=== PATIENT | male | born 1960 | race Caucasian/White ===

== ENCOUNTER 2025-05-10 21:40 | Outpatient (REF) | payer MEDICARE, MEDICAID, SELFPAY ==
--- OUTSIDE RECORDS SUMMARY | 2025-02-08 03:30 | XMS_ITS ---
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 Encounters Encounter Location Date Provider Diagnosis [facility] [address] [place] [address] 02/08/2025 Mehrdad Christina Thrombosis due to vascular prosthetic devices, implants and grafts, initial encounter T82.868A and End stage renal disease N18.6 Assessments Encounter Date Diagnosis (ICD Code) Assessment Notes Treatment Notes Treatment Clinical Notes Section Notes 02/08/2025 Thrombosis due to vascular prosthetic devices, implants and grafts, initial encounter (ICD-10 - T82.868A) 02/08/2025 End stage renal disease (ICD-10 - N18.6) Plan Of Treatment No Information Progress Notes * Vernon CHAPMAN JrDOB: [birth year] (64 yo M)Acc No.[id number]:02/08/2025 Patient: Grey SANTACURZVernon Jr Provider: Hector Vasquez MD :1960 A ge:64 Y S ex:Male Date:02/08/2025 Address:[address] [facility], [place], [place] Pcp:Omero Burton MD * * Sign off status: Completed Visit Status: P EN (Pending) true * Provider: Hector Vasquez MD Date: 0 02/08/2025 Generated for Dinesh cardoza/Felipe/eTransmitting on: 0 05/10/2025 09:50 PM EDT
--- OUTSIDE RECORDS SUMMARY | 2025-02-08 03:30 | XMS_ITS ---
Author Organization [facility] in [place] Address [address] [place] [address] Care Team Providers Care Fitness And Wellness Manager Name Role Phone Josephine MUÑOZ, Omero Primary Care Provider Unavaila ble Provider, [facility] Unavailable [phone] Encounters Encounter Location Date Provider Diagnosis [facility] [address] [place] [address] 02/08/2025 ASC Provider Plan Of Treatment No Information Progress Notes * Vernon CHAPMAN JrDOB: [birth year] (64 yo M)Acc No.[id number]:02/08/2025 UNLOCKED PROGRESS NOTE Patient: Grey SANTACRUZVernon Jr Provider: A UT Provider :1960 A ge:64 Y S ex:Male Date:02/08/2025 Address:[address] [facility] Pcp:Omero Burton MD Check In:07:29 AM EST * * Electronic signature of ASC Provider on 05/10/2025 at 09:49 PM EDT Sign off status: Pending Visit Status: A RR (Check-In) * Provider: A SC Provider Date: 02/08/2025 Generated for Printi ng/Faxing/eTransmitting on: 0 05/10/2025 09:49 PM EDT
--- OUTSIDE RECORDS SUMMARY | 2025-03-02 09:15 | XMS_ITS ---
Author Organization [facility] in [place] Address [address] [place] [address] Care Team Providers Care Prize Coordinator Name Role Phone Omero Burton MD Primary Care Provider Alexa Booth Unavailable [phone] REASON FOR VISIT Start Dialysis - 01/15/25 Encounters Encounter Location Date Provider Diagnosis [facility] [place] [address] [place] [address] 03/02/2025 Alexa Verde Plan Of Treatment No Information Progress Notes * Vernon CHAPMAN JrDOB: [birth year] (64 yo M)Acc No.[id number]:03/02/2025 Patient: Grey ISABELMAIVernon Jr :1960 A ge:64 Y S ex:Male Address:[address] [place], [address] * true * Date: Generated for Printi ng/Fajoshuag/eTransmitting on: 0 05/10/2025 09:49 PM EDT
--- OUTSIDE RECORDS SUMMARY | 2025-04-29 07:15 | XMS_ITS ---
Author Organization [facility] Address [address] [place] [address] [address] [place] [address] Care Team Providers Care Juvenile Corrections Officer Name Role Phone FERCHO ANTHONY Unavailable [phone] REASON FOR VISIT Respiratory failure, COPD Encounters Encounter Location Date Provider Diagnosis [place] [address] [facility] [address] [place], [place] [id number] 04/29/2025 FERCHO ANTHONY Acute respiratory fa ilure with hypoxia J96.01 ; Chronic obstructive pulmonary disease, unspecified J44.9 and Bronchiectasis, uncomplicated J47.9 Assessments Encounter Date Diagnosis (ICD Code) Assessment Notes Treatment Notes Treatment Clinical Notes Section Notes 04/29/2025 Acute respiratory failure with hypoxia (ICD-10 - J96.01) 04/29/2025 Chronic obstructive pulmonary disease, unspecified (ICD-10 - J44.9) 04/29/2025 Bronchiectasis, uncomplicated (ICD-10 - J47.9) Plan Of Treatment Next Appt Details Follow Up: 1 Week, Reason: Progress Notes * CHAPMAN, VernonDOB:1960 ( 64 yo M)Acc No.[id number]:04/29/2025 Progress Notes Patient: Vernon BETTENCOURT Provider: Siomna Anthony MD :1960 A ge:64 Y S ex:Male Date:04/29/2025 Phone: Address:[address] [place] [address], [facility] Subjective: * Chief Complaints: * R espiratory failureCOPD * HPI: C onstitutional: Continuing to see patient for pulmonary management. Evaluated patient in the facility today and discussed the patient's condition with the nurse and RT. Reviewed chart, vital signs, and any new orders. Continue current orders as written and please contact me with any changes in condition or questions. Impression: Acute hypoxic respiratory failure COPD Centrilobular Emphysema Anxiety Hep C End stage Renal failure on HD M/W/F Tobacco abuse CT chest 10/20/2024 at [facility]- Emphysema. Mild parenchymal scarring in the lingula. Diffuse bronchial wall thickening. Dependent opacities in the right lower lobe. Severe coronary artery calcifications. Severe atherosclerotic disease in the thoracic aorta. Prominent central pulmonary arteries. CXR 04/02: diffuse pulmonary parenchymal nodularity, increased from 03/22. New RUL consolidation. 1.9 cm right paratracheal nodule, likely a lymph node. Mid left lung linear atelectasis, or scarring remains unchanged. Anemia Plan: Pending CT chest with contrast 2-3L 02 nasal cannula, maintain SPO2 greater than 88% Pulmicort BID Duoneb TID and Q4 hours as needed Refusing smoking sensation education, wants to smoke again when he is on room air Respiratory therapy to follow Will continue to monitor pulmonary status. * ROS: A ll Other Systems: Review of Systems (ROS) A ll others negative except those mentioned in HPI,See HPI for details. * Medical History: * Surgical History: * Hospitalization/Major Diagno stic Procedure: * Medications: Objective: * Vitals: * Examination: G eneral Examination: GENERAL APPEARANCE: i n no acute distress, chronically ill in apperance. HEAD: n ormocephalic, atraumatic. ORAL CAVITY: m ucosa moist. THROAT: c lear. NECK/THYROID: n anuj supple, full range of motion. SKIN: n o suspicious lesions, warm and dry. HEART: n o murmurs, regular rate and rhythm, S1, S2 normal.? LUNGS: d iminished breath sounds throughout, no wheezing, rales or rhonchi. No distress. ABDOMEN: s oft, nontender, nondistended. EXTREMITIES: n o clubbing, cyanosis, or edema. NEUROLOGIC: A lert, confused with aspects of care. ? Assessment: * Assessment: 1. A cute respiratory failure with hypoxia - J96.01 (Primary) 2 . C hronic obstructive pulmonary disease, unspecified - J44.9 3 . B ronchiectasis, uncomplicated - J47.9 Plan: * Treatment: * Procedure Codes: * Follow Up: 1 Week * * Sign off status: Completed true * Provider: Simona Anthony MD Date: 0 04/29/2025 Generated for Rajani nani/Felipe/eTransmitting on: 0 05/10/2025 09:49 PM EDT History and Physical Notes * HPI (History of Present Illness) Category Sub-Category Detail Notes Category Not es Constitutional Continuing to see patient for pulmonary management. Evaluated patient in the facility today and discussed the patient's condition with the nurse and RT. Reviewed chart, vital signs, and any new orders. Continue current orders as written and please contact me with any changes in condition or questions. Impression: Acute hypoxic respiratory failure COPD Centrilobular Emphysema Anxiety Hep C End stage Renal failure on HD M/W/F Tobacco abuse CT chest 10/20/2024 at [facility]- Emphysema. Mild parenchymal scarring in the lingula. Diffuse bronchial wall thickening. Dependent opacities in the right lower lobe. Severe coronary artery calcifications. Severe atherosclerotic disease in the thoracic aorta. Prominent central pulmonary arteries. CXR 04/02: diffuse pulmonary parenchymal nodularity, increased from 03/22. New RUL consolidation. 1.9 cm right paratracheal nodule, likely a lymph node. Mid left lung linear atelectasis, or scarring remains unchanged. Anemia Plan: Pending CT chest with contrast 2-3L 02 nasal cannula, maintain SPO2 greater than 88% Pulmicort BID Duoneb TID and Q4 hours as needed Refusing smoking sensation education, wants to smoke again when he is on room air Respiratory therapy to follow Will continue to monitor pulmonary status Examination Category Sub-Category Detail Notes Category Not es General Examination GENERAL APPEARANCE: in no ac [place] distress, chronically ill in apperance HEAD: normocephalic, atrau matic THROAT: clear NECK/THYROID: neck supple, full ra nge of motion HEART: no murmurs, regular rate and rhythm, S1, S2 normal LUNGS: diminished breath so unds throughout, no wheezing, rales or rhonchi. No distress ABDOMEN: soft, nontender, non distended NEUROLOGIC: Alert, confused with aspects of care SKIN: no suspicious lesion s, warm and dry EXTREMITIES: no clubbing, cyanosi s, or edema ORAL CAVITY: mucosa moist
--- OUTSIDE RECORDS SUMMARY | 2025-05-06 06:15 | XMS_ITS ---
Author Organization [facility] Address [address] [place] [address] [address] [place] [address] Care Team Providers Care Business Excellence Manager Name Role Phone JAIME ANTHONYY Unavailable [phone] REASON FOR VISIT Respiratory failure, COPD Encounters Encounter Location Date Provider Diagnosis [place] [address] [facility] [address] [place], [place] [id number] 05/06/2025 FERCHO ANTHONY Acute respiratory fa ilure with hypoxia J96.01 ; Chronic obstructive pulmonary disease, unspecified J44.9 and Bronchiectasis, uncomplicated J47.9 Assessments Encounter Date Diagnosis (ICD Code) Assessment Notes Treatment Notes Treatment Clinical Notes Section Notes 05/06/2025 Acute respiratory failure with hypoxia (ICD-10 - J96.01) 05/06/2025 Chronic obstructive pulmonary disease, unspecified (ICD-10 - J44.9) 05/06/2025 Bronchiectasis, uncomplicated (ICD-10 - J47.9) Plan Of Treatment Next Appt Details Follow Up: 1 Week, Reason: Progress Notes * CHAPMAN, VernonDOB:1960 ( 64 yo M)Acc No.[id number]:05/06/2025 Progress Notes Patient: Vernon BETTENCOURT Provider: Simona Anthony MD :1960 A ge:64 Y S ex:Male Date:05/06/2025 Phone: Address:[address] [place] [address], [facility] Subjective: * Chief Complaints: * R espiratory failureCOPD * HPI: C onstitutional: Continuing to see patient for pulmonary management. Discussed pulmonary status with the respiratory therapist. Reviewed current assessment findings and orders. Continue the current plan of care. Impression: Acute hypoxic respiratory failure COPD Centrilobular Emphysema Anxiety Hep C End stage Renal failure on HD M/W/F Tobacco abuse Anemia Plan: 2-3L 02 nasal cannula, maintain SPO2 greater than 88% Duoneb and Albuterol PRN Refusing smoking sensation education, wants to smoke again when he is on room air Respiratory therapy to follow CT chest 10/20/2024 at [facility]- Emphysema. Mild parenchymal scarring in the lingula. Diffuse bronchial wall thickening. Dependent opacities in the right lower lobe. Severe coronary artery calcifications. Severe atherosclerotic disease in the thoracic aorta. Prominent central pulmonary arteries. CXR 04/02: diffuse pulmonary parenchymal nodularity, increased from 03/22. New RUL consolidation. 1.9 cm right paratracheal nodule, likely a lymph node. Mid left lung linear atelectasis, or scarring remains unchanged. CT 04/20/25: Worsening right lower lobe consolidation possibly pneumonia versus atelectasis with small pleural thickening Will continue to monitor pulmonary status. * [...] * Provider: Simona Anthony MD Date: 0 05/06/2025 Generated for Dinesh cardoza/Fajoshuag/eTransmitting on: 0 05/10/2025 09:49 PM EDT History and Physical Notes * HPI (History of Present Illness) Category Sub-Category Detail Notes Category Not es Constitutional Continuing to see patient for pulmonary management. Discussed pulmonary status with the respiratory therapist. Reviewed current assessment findings and orders. Continue the current plan of care. Impression: Acute hypoxic respiratory failure COPD Centrilobular Emphysema Anxiety Hep C End stage Renal failure on HD M/W/F Tobacco abuse Anemia Plan: 2-3L 02 nasal cannula, maintain SPO2 greater than 88% Duoneb and Albuterol PRN Refusing smoking sensation education, wants to smoke again when he is on room air Respiratory therapy to follow CT chest 10/20/2024 at [facility]- Emphysema. Mild parenchymal scarring in the lingula. Diffuse bronchial wall thickening. Dependent opacities in the right lower lobe. Severe coronary artery calcifications. Severe atherosclerotic disease in the thoracic aorta. Prominent central pulmonary arteries. CXR 04/02: diffuse pulmonary parenchymal nodularity, increased from 03/22. New RUL consolidation. 1.9 cm right paratracheal nodule, likely a lymph node. Mid left lung linear atelectasis, or scarring remains unchanged. CT 04/20/25: Worsening right lower lobe consolidation possibly pneumonia versus atelectasis with small pleural thickening Will continue to monitor pulmonary status Examination Category Sub-Category Detail Notes Category Not es General Examination GENERAL APPEARANCE: in no ac julia distress, chronically ill in apperance HEAD: normocephalic, [...]
--- OUTSIDE RECORDS SUMMARY | 2025-05-10 21:49 | XMS_ITS | Patient Health Record ---
Author Organization Formerly [facility], 1928–1983 vices Address [address] [place], [place] [id number] Care Team Providers Care Biology Department Chair Name Role Phone Stefan Fleming Unavailable [phone] Reason For Referral No Information Immunizations Vaccine Route Administration Date Status Comme nts *Pneumococcal polysaccharide [id number] OTH Other/Miscell aneous 06/17/2018 Administered Status:Complete ,Reason:Given or N/A ,see scanned document Influenza, quadrivalent, split, preservative free, 3 years or older OTH Other/Miscell aneous 06/17/2018 Administered Status:Complete ,Reason:Given or N/A ,see scanned document Problems Problem Type SNOMED Code ICD Code Onset Dates Problem Status W/U Status Risk Notes Problem Cachexia (735496716) Cachexia (R64) Active confirmed Problem Eczema (67845442) Eczema (L30.9) Active confirmed Comment:Keep skin clean and dry as able Use lotion twice daily as needed, Problem Hyperlipidemia (32317932) Hyperlipidemia (E78.5) Active confirmed Comment:Pt is on atorva 10 mg daily I will go up to 40 mg daily as LDL still not within goal,Story:02/19 020: 157/116/27/107 04/07: Cholesterol:15 7, FCT124, HDL 27,TG 116, Problem Depression screening (739313217) Screening for depression (Z13.31) Active confirmed Comment:Annual depression questionnaire was done today during the appointment. Per the score, and after discussion with the pt we decided to continue watching for symptoms of depression and pt was advised to call me if symptoms are worse and PVU No meds or counselling required at this point.,Story:P HQ9: 3 on 04/08/2020,Desc ription:Edwin wood screening Problem Anemia (638229915) Anemia (D64.9) Active confirmed Story:Ferritin : 207 Iron: 125/286/44 on 03/2020, Problem Fatigue (55285850) Fatigue (R53.83) Active confirmed Comment:Relati on to CAD, liver disease, edema C/o fatigue with ADLs, Denies SOB, needs to rest frequently Pt requesting assistance in home preference to [id number], Problem Localized, primary osteoarthritis of the hand (590021609) Osteoarthritis of hands, 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 Previously been seen by rheumatology. Can use ice and moist heat as needed - per pt it doesnt help. Pt unable to tolerate the NSAIds due to GI issues. I will add tylenol arthritis (to be used BID as needed). Pt requesting norco 5-325 refill. I will give 1 tab daily, 1 month supply. I will sign the pain contract today, re address in 6 months. F/up in 3 months, Problem Restless legs (45436653) Restless legs (G25.81) Active confirmed Comment:Increa sed dose of requip, Problem Foot pain (86154975) Foot pain (M79.673) Active confirmed Problem Acute non-ST segment elevation myocardial infarction (143090636) NSTEMI (non-ST elevated myocardial infarction) (I21.4) Active confirmed Comment:Refer to licensed investment sales assistant for evaluation. Needs stress test / cath for further evaluation,Sto ry:Trop: 0.24 on 05/21/2020, Problem Ascites (412852665) Ascites (R18.8) Active confirmed Comment:Abdome n soft and non tender. Lasix 80 mg daily with Aldactone 50 mg daily., Problem Wrist pain (27320922) Wrist pain (M25.539) Active confirmed Comment:Pt went to ED on 05/17/2020 with c/o right wrist pain. Xrays of hand and wrist showed couple old fractures but no new changes He was given a wrist splint I will order ortho referral for further evaluation and treatment today.,Story:R ight, Problem Cholestatic pruritus (825947534) Cholestatic pruritus (L29.8) Active confirmed Problem COPD - Chronic obstructive pulmonary disease (80107334) COPD (chronic obstructive pulmonary disease) (J44.9) Active confirmed Comment:Pt has persistent COPD and is currently out of meds. I will refill symbicort and proair as rescue inhaler. Pt had the flu shot and the pneumonia shot this year. Advised to avoid triggers and continue to hold off on smoking. S/s of COPD exacerbation were discussed with the pt and he was encouraged to call us if he feels he has an exacerbation and PVU. F/up in 3 months or earlier if needed., Problem Neuropathy of both feet (G57.93) Active confirmed Comment:Can use ice and moist heat as needed Continue with Neurontin 400 mg TID now. I will add amitriptyline 10 mg HS , may go up on the dose if he tolerates it. I will restart Salina 1 tab HS due to chronic pain. If his urine is inconsistent, we will stop the pain contract and PVU Pt refuses to see PM F/up in 1 month and we will re-initiate pain contract and PVU,Story:++ opiates and cannabinoids on urine tox, Gabapentin +ve on 04/04/2020 -ve gabapentin level 09/11/2020 Salina, gabapentin 400 TID, amitriptyline 10 HS (04/08/2020), Problem Weight decreased (563045488) Weight loss, abnormal (R63.4) Active confirmed Problem Hypertension (02716870) HTN (hypertension) (I10) Active confirmed Comment:I will continue nifedipine, aldactone and coreg. DC lisinopril due to cough F/up with otr owner operator and licensed investment sales assistant next week. Advised to send notes and PVU F/up in 2 week with Bp readings., Problem Coronary artery disease (52943822) CAD (coronary artery disease) (I25.10) Active confirmed Comment:c.w current meds no changes in symptoms, Problem Gout (99334175) Gout (M10.9) Active confirmed Comment:I will go up on allopurinol to 300 mg daily 1 month f/up,Story:Uri c acid: 10.7 on 04/04/2020, Problem Gout attack (298990295) Gout attack (M10.9) Active confirmed Comment:Can use ice and moist heat as needed Can continue Naproxen as needed for pain and inflammation Can use Tylenol Arthritis as needed for breakthrough pain, Problem Chronic kidney disease (060548645) CKD (chronic kidney disease) (N18.9) Active confirmed Comment:Will continue the same management for now. He was advised to see the kidney doctor. He says he has the referral to the doctor ([phone]) I will dc lisinopril due to cough.,Story:C r 1.4 on 03/2020--> 2.46 on 05/21/2020 (Na:133, K:3.5)---> 2.75 on 06/24/2020, Problem Viral hepatitis type C (13247276) Hepatitis-C (B19.20) Active confirmed Story:treated. , Problem Acute exacerbation of chronic obstructive airways disease (703904559) COPD exacerbation (J44.1) Active confirmed Problem Vitamin D deficiency (72498160) Vitamin D deficiency (E55.9) Active confirmed Comment:I will start on high dose vitamin D replacement i.e 50,000 qweekly I will repeat levels in 3 months and adjust dose as needed.,Story: Vit D: 7 on 03/2020, Problem Edema (080983927) Lower extremity edema (R60.0) Active confirmed Comment:Start Lasix ADR's discussed to ER if any SOB PVU, Problem Neuropathy (308740526) Neuropathy (G62.9) Active confirmed Comment:Get better blood BS control Increase safety factors in home as able, Problem Pain in right hand (827488409719506 ) Right hand pain (M79.641) Active confirmed Comment:Can use ice and moist heat as needed Can use Tylenol Arthritis as needed for breakthrough pain, Problem Hand joint pain (273869056) Pain, joint, hand, left (M25.542) Active confirmed Problem Arthralgia of the pelvic region and thigh (630713627) Left hip pain (M25.552) Active confirmed Comment:Can use ice and moist heat as needed, Problem Inguinal hernia (198011047) Inguinal hernia, left (K40.90) Active confirmed Comment:asking for eval, will refer to general surgery Reducable and not painful on exam, Problem Prescription renewal (993290746) Medication refill (Z76.0) Active confirmed Problem Tobacco user (782653675) Smoking addiction (F17.200) Active confirmed Comment:Contin ue with current weaning of smoking to cessation, Problem History of heavy alcohol consumption (Z87.898) Active confirmed Problem Type II diabetes mellitus well controlled (906442378) Diabetes type 2, controlled (E11.9) Active confirmed Comment:Contin ue with current diet, exercise and drug regimen as able Continue measuring blood sugars twice daily, record, and bring with you to next follow up visit If blood sugars start trending below 70 mg/dL or above 200 mg/dL, call office for further evaluation, Problem Erectile dysfunction (966308494) Erectile dysfunction (N52.9) Active confirmed Comment:Pt requests viagra as cialis is not working. I will send 10 pills with 3 refills to [facility] with good Rx coupon today I discussed potential side effects and PVU., Problem Dry skin dermatitis (157664972) Dry skin dermatitis (L85.3) Active confirmed Comment:Keep skin clean and dry as able Keep BS's well under 200 mg/dL, Problem Pharyngitis (488941970) Pharyngitis (J02.9) Active confirmed Comment:Increa se fluids and rest as able If no better in a week, call office for further evaluation Can use Tylenol or Motrin as needed for pain and fever, Problem Cough (54151454) Cough (R05.9) Active confirmed Comment:Suspec t due to lisinopril I will dc that F/up in 2 weeks with Bp readings., Problem Chronic hepatitis C (469761799) Chronic hepatitis C (B18.2) Problem resolved confirmed Comment:Gretchen azevedo Last AST/ ALT ., Plan Of Treatment No Information Insurance Providers Payer Name Payer Address Payer Phone Subscriber Number Group Number Insured Name Patient Relationship to Insured Coverage Start Date Coverage End Date [facility] Dental Dual MCR [address] [place] [address] [id number] Vernon Stanford Self - patient is the insured 3 DMedicaid ABD after [facility] [address] [place], [place] [phone] [id number] Vernon Stanford Self - patient is the insured 3 Medicaid ABD after [facility] [address] [place] [address] [id number] Vernon Stanford Self - patient is the insured 8 [facility] [address] [place], [place] [id number] Vernon Stanford Self - patient is the insured 8 Medicaid CFC after [facility] [address] [place] [address] [id number] Vernon Stanford Self - patient is the insured 6 8 [facility] [address] [place], [place] [phone] [id number] Vernon Stanford Self - patient is the insured 6 8 Medical (General) History Surgical History Surgery Date(Month/Year) Cardiac stenting, ProblemStatus: Active, Inguinal Hernia Repair, ProblemStatus: A ctive,
--- OUTSIDE RECORDS SUMMARY | 2025-05-10 21:50 | XMS_ITS | Patient Health Record ---
Author Organization [facility] [place] Address [address] [place] [address] Care Team Providers Care Open Hearth Helper Name Role Phone Omero Burton MD Primary Care Provider Unavaila ble Provider, ASC Unavailable [phone] ChristinaMehrdad rodriguez Unavailable [phone] Alexa Verde Unavailable [phone] Results Component Value Reference Range Notes BMP w/GFR Reviewed date:01/16/2025 10:07:02 AM Interpretation: Performing Lab: Notes/Report: SODIUM 137 134-146 mmol/L POTASSIUM 4.2 3.5-5.0 mmol/L CHLORIDE 103 98-109 mmol/L CARBON DIOXIDE 25 22-32 mmol/L ANION GAP 9 5-15 mmol/L BLOOD UREA NITROGEN 20 5-27 mg/dL CREATININE 2.81 0.60-1.30 mg/dL METHOD TRACEABLE TO IDMS STANDARD METHOD TRACEABLE TO IDMS STANDARD GLUCOSE 81 65-99 mg/dL CALCIUM 8.0 8.5-10.5 mg/dL EGFR (CKD-EPI) NON-RACE DEPENDENT 24 >=60 ml/min/1.73sq.m not use a race coefficient. CKD-EPI 2020 equation that does PERFORMED AT [address], [place] [address] Reported eGFR is based on the BUN Reviewed date:01/16/2025 09:58:02 AM Interpretation: Performing Lab: Notes/Report: BLOOD UREA NITROGEN 49 5-27 mg/dL PERFORMED AT [address] [address] HEMOGLOBIN Reviewed date:01/16/2025 10:06:56 AM Interpretation: Performing Lab: Notes/Report: HEMOGLOBIN 8.0 13-17 g/dL PERFORMED AT [address], [place] [address] Electrolyte Panel Reviewed date:01/16/2025 09:58:22 AM Interpretation: Performing Lab: Notes/Report: SODIUM 137 134-146 mmol/L POTASSIUM 4.2 3.5-5.0 mmol/L CHLORIDE 103 98-109 mmol/L CARBON DIOXIDE 25 22-32 mmol/L ANION GAP 9 5-15 mmol/L PERFORMED AT [address] [address] COMPREHENSIVE METABOLIC PANE L Reviewed date:01/16/2025 10:06:58 AM Interpretation: Performing Lab: Notes/Report: SODIUM 137 134-146 mmol/L POTASSIUM 4.2 3.5-5.0 mmol/L CHLORIDE 103 98-109 mmol/L CARBON DIOXIDE 25 22-32 mmol/L ANION GAP 9 5-15 mmol/L BLOOD UREA NITROGEN 20 5-27 mg/dL CREATININE 2.81 0.60-1.30 mg/dL METHOD TRACE ABLE TO IDMS STANDARD GLUCOSE 81 65-99 mg/dL CALCIUM 8.0 8.5-10.5 mg/dL TOTAL PROTEIN 6.6 6.0-8.0 g/dL ALBUMIN 2.6 3.2-5.3 g/dL ALKALINE PHOSPHATASE 313 39-130 U/L AST 33 <=41 U/L ALT 14 <=40 U/L BILIRUBIN,TOTAL 0.5 0.3-1.2 mg/dL EGFR (CKD-EPI) NON-RACE DEPENDENT 24 >=60 ml/min/1.73sq.m Reported eGFR is based on the not use a race coefficient. PERFORMED AT [address], [place] [address] CKD-EPI 2020 equation that does IRON PROFILE ([facility]) Reviewed date:01/16/2025 09:57:56 AM Interpretation: Performing Lab: Notes/Report: IRON 37 50-212 ug/dL TRANSFERRIN 83 168-336 mg/dL IRON BINDING 116 250-425 ug/dL IRON SATURATION 32 20-50 % SATURATION PERFORMED AT [address] [address] LIVER PANEL Reviewed date:01/16/2025 09:58:09 AM Interpretation: Performing Lab: Notes/Report: TOTAL PROTEIN 6.6 6.0-8.0 g/dL ALBUMIN 2.6 3.2-5.3 g/dL BILIRUBIN,TOTAL 0.5 0.3-1.2 mg/dL ALKALINE PHOSPHATASE 313 39-130 U/L AST 33 <=41 U/L ALT 14 <=40 U/L BILIRUBIN,DIRECT 0.1 <=0.4 mg/dL PERFORMED AT [place] [address] [facility] [address] HEPATITIS PANEL Reviewed date:01/17/2025 12:18:31 PM Interpretation: Performing Lab: Notes/Report: HEPATITIS B SURF AG Non-Reactive Non-Reactive HEPATITIS A IGM Non-Reactive Non-Reactive HEPATITIS B CORE IGM Non-Reactive Non-Reactive ANTI HCV W/PCR REFLX Reactive Non-Reactive Cdeozo-vd-asbeol ratio is >=1.00. PERFORMED AT [address],[place] [address] Supplemental testing for HCV RNA by PCR has been ordered per CDC recommendations. Reason For Referral No Information Problems Problem Type SNOMED Code ICD Code Onset Dates Problem Status W/U Status Risk Notes Problem Hypomagnesemia (850888057) Hypomagnesemia (E83.42) Active confirmed Problem End stage renal disease (66855442) End stage renal disease (N18.6) Active confirmed Problem 310812718 Other ascites (R18.8) Active confirmed Problem 58911779 Unspecified abnormalities of gait and mobility (R26.9) Active confirmed Problem Hyperlipidemia (84962168) Hyperlipidemia (E78.5) Active confirmed Problem Congestive heart failure (54908022) CHF (congestive heart failure) (I50.9) Active confirmed Problem Gastroesophageal reflux disease (402044963) GERD (gastroesophageal reflux disease) (K21.9) Active confirmed Problem Coronary artery disease (85202110) CAD (coronary artery disease) (I25.10) Active confirmed Problem Hypertension (93726026) HTN (hypertension) (I10) Active confirmed Problem Hepatitis C (05196106) Hepatitis C (B19.20) Active confirmed Problem DM - Diabetes mellitus (44477259) DM (diabetes mellitus) (E11.9) Active confirmed Problem Anemia (948573502) Anemia (D64.9) Active confir med Problem Acute diastolic heart failure (335566092) Acute diastolic (congestive) heart failure (I50.31) Active confirmed Problem End stage renal disease (77791893) ESRD (end stage renal disease) (N18.6) Active confirmed Problem Hyperlipidaemia (37008050) HLD (hyperlipidemia) (E78.5) Active confirmed Problem Constipation (67841916) Constipation (K59.00) Active confirmed Problem Vitamin D deficiency (86987312) Hypovitaminosis D (E55.9) Active confirmed Problem History of placement of stent for coronary artery disease (situation) (345312969) H/O heart artery stent (Z95.5) Active confirmed Problem Cholelithiasis (181226221) Cholelithiasis (K80.20) Active confirmed Problem Nephrosclerosis (88229610) Atrophic kidney (N26.1) Active confirmed Problem Hyperphosphatemia (56383937) Hyperphosphatemia (E83.39) Active confirmed Problem Anemia of chronic disease (309184831) Anemia of chronic disease (D63.8) Active confirmed Problem Iron deficiency anemia (35391658) JUANA (iron deficiency anemia) (D50.9) Active confirmed Problem Essential hypertension (82627237) Essential (primary) hypertension (I10) Active confirmed Problem Coronary arteriosclerosis (71021361) ASCVD (arteriosclerotic cardiovascular disease) (I25.10) Active confirmed Problem History of myocardial infarction (178035448) History of myocardial infarction (I25.2) Active confirmed Problem 49627363782823817 Thrombosis due to vascular prosthetic devices, implants and grafts, 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 confirmed Problem Lumbar spinal stenosis (67135976) Spinal stenosis, lumbar (M48.061) Active confirmed Problem Type II diabetes mellitus without complication (244240433) Diabetes (E11.9) Active confirmed Problem 662876517 Stage 3b chronic kidney disease (N18.32) Active confirmed Encounters Encounter Location Date Provider Diagnosis [facility] [address] [place] [address] 02/08/2025 ASC Provider [facility] [address] [place] [address] 02/08/2025 Mehrdad Christina Thrombosis due to vascular prosthetic devices, implants and grafts, initial encounter T82.868A and End stage renal disease N18.6 [facility] [place] [address] [place] [address] 03/02/2025 Alexa Verde Assessments Encounter Date Diagnosis (ICD Code) Assessment Notes Treatment Notes Treatment Clinical Notes Section Notes 02/08/2025 End stage renal disease (ICD-10 - N18.6) 02/08/2025 Thrombosis due to vascular prosthetic devices, implants and grafts, initial encounter (ICD-10 - T82.868A) Plan Of Treatment No Information Insurance Providers Payer Name Payer Address Payer Phone Subscriber Number Group Number Insured Name Patient Relationship to Insured Coverage Start Date Coverage End Date [facility] [employer] [address] [place] [address] [id number] [facility] 2 Vernon Stanford Self - patient is the insured [address] [facility] DUAL [facility] [address] [place] [address] [id number] [facility] 2 Vernon Stanford Self - patient is the insured 4
[2025-05-10 21:58] LABS: Hemoglobin 7.0 g/dL (14.0-18.0); Immature Granulocytes Abs Auto 0.01 10^3/uL (0.00-0.03); Immature Granulocytes Pct Auto 0.2 % (0.0-0.5); Lymphocytes Absolute Auto 1.0 10^3/uL (1.2-3.8); Mean Corpuscular HGB Conc 30.8 g/dL (29.9-35.2); Mean Corpuscular Hemoglobin 30.6 pg (25.9-34.0); Mean Corpuscular Volume 99.1 fL (80.0-94.0); Platelet Count 78 10^3/uL (150-450); Red Blood Count 2.29 10^6/uL (4.70-6.10); White Blood Count 4.7 10^3/uL (4.0-11.0)
[2025-05-10 22:04] LABS: Hematocrit 22.7 % (42.0-54.0)
== END 2025-05-10 21:41 | disposition home or self-care (01) ==
LOC: LAB 21:40
PROVIDERS: PCP Family Medicine; Visit Provider Nurse Practitioner Family
DX: D64.9 Anemia, unspecified (principal)
CPT/HCPCS: 36415; 85025